=== PATIENT | male | born 1940 | race Asian ===

== ENCOUNTER 2017-10-29 09:58 | Emergency (ER) | payer OTHER ==
[~2017-10-29] VITALS: Ht 170.2 cm; Wt 63.5 kg
[2017-10-29 10:04] VITALS: BP 161/92
[2017-10-29] MEDS ORDERED: KETOROLAC TROMETH 30 MG/ML 1ML VIAL IM ONE (11:00)
== END 2017-10-29 12:01 | disposition home or self-care (01) ==
LOC: ER 09:58
DX: M51.36 Other intervertebral disc degeneration, lumbar region (principal); M48.061 Spinal stenosis, lumbar region without neurogenic claudication
CPT/HCPCS: 72131; 96372; 99284; J1885

== ENCOUNTER 2018-08-01 13:47 | Emergency (ER) | payer MEDICARE, OTHER ==
[~2018-08-01] VITALS: Ht 170.2 cm; Wt 61.2 kg
[2018-08-01 16:46] VITALS: BP 148/97
== END 2018-08-01 16:47 | disposition home or self-care (01) ==
LOC: ER 13:54
DX: M54.16 Radiculopathy, lumbar region (principal); R20.0 Anesthesia of skin
CPT/HCPCS: 72131; 93005